=== PATIENT | male | born 2000 | race Two or more races ===

== ENCOUNTER 2022-09-23 03:50 | Emergency (ER) | payer OTHER ==
[~2022-09-23] VITALS: Ht 185.4 cm; Wt 95.4 kg
[2022-09-23] MEDS ORDERED: TETANUS-DIPTH-ACEL PERTUSSIS 0.5ML SYR Tdap IM ONE (04:15)
[2022-09-23] MEDS ORDERED: LIDOCAINE 1% HCL (LOCAL ANESTH.) INJ 20ML MDV ID ONE (04:15)
[2022-09-23] MEDS ORDERED: IBUPROFEN 600 MG TAB PO ONE (04:15)
[2022-09-23] MEDS ORDERED: CEPH500C PO (04:24)
[2022-09-23] MEDS ORDERED: IBUP1TAB4 PO (04:24)
[2022-09-23] MEDS ORDERED: MUPI2OIN2 EX (04:24)
[2022-09-23 04:26] VITALS: BP 148/80
[2022-09-23] MEDS ORDERED: cefTRIAXone W LIDOCAINE 1 GM IM IM ONE (04:45)
[2022-09-23] MEDS ORDERED: NEOMYCIN-BACITRACIN-POLYM UNITDOSE PKG TOP OINT TOP ONE (05:00)
[2022-09-23] MEDS ORDERED: cefTRIAXone SOD 1,000 MG VL IM ONE (05:00)
== END 2022-09-23 05:09 | disposition home or self-care (01) ==
LOC: ER 03:50
DX: S01.312A Laceration without foreign body of left ear, initial encounter (principal); Z79.899 Other long term (current) drug therapy; W01.0XXA Fall on same level from slipping, tripping and stumbling without subsequent striking against object, initial encounter; Y93.89 Activity, other specified; Y92.89 Other specified places as the place of occurrence of the external cause; Y99.8 Other external cause status
CPT/HCPCS: 12013; 90471; 90715; 96372; 99284; J0696; J2001

== ENCOUNTER 2024-12-08 16:30 | Emergency (ER) | payer OTHER ==
[~2024-12-08] VITALS: Ht 188 cm; Wt 88.4 kg
[~2024-12-08 16:30] MED LIST: CEPH500C PO; IBUP1TAB4 PO; MUPI2OIN2 EX
--- NOTE | 2024-12-08 17:09 | ED.PDOC ---
Eye-HPI HPI Comments Triage note 24-year-old male recently diagnosed with a peritonsillar abscess yesterday at [facility] presents with a chief complaint of worsening throat pain. Patient reports strep test was negative yesterday. The patient received two injections and was discharged with medications with minimal improvement. The patient has gone a preliminary evaluation purpose of accelerating the patient's care. The patient is aware that this is only a preliminary screening. The initial orders and they are associated results are to be reviewed documented in active upon by the other clinicians currently working in the ED. should the patient leave prior to this formal evaluation efforts will be made to follow up on critical results with the patient understands eye he is responsible for following up on his own results by contacting the emergency department. Chief Complaint: Sore Throat Time Seen by MD: 17:09 Reviewed Notes: Nurses Notes, Medications, Allergies Allergies: Coded Allergies: NO KNOWN ALLERGIES (Unverified , 09/23/22) Home Meds Active Scripts Mupirocin (Pseudomonas Fluores (Mupirocin) 2 % Oin, 1 APPLIC EX BID for 10 Days, #1 OIN Prov:ISAAC GIBSONALDA Q ENGINE ROOM OPERATOR 09/23/22 Ibuprofen Micronized (Ibuprofen) 400 Mg Tab, 1 TAB PO Q6HR, #20 TAB as neeeded for pain Prov:GIBSON,NORALDA Q ENGINE ROOM OPERATOR 09/23/22 Cephalexin Monohydrate (Cephalexin) 500 Mg Cap, 1 TAB PO QID for 10 Days, #40 CAP Prov:GIBSON,NORALDA Q ENGINE ROOM OPERATOR 09/23/22 Information Source: Patient Mode of Arrival: Ambulatory Past Medical History PAST MEDICAL HISTORY: Denies Surgical History: Denies all surgeries All Other Systems: Reviewed and Negative (PER HPI) Physical Exam General Appearance: No Apparent Distress, Normal HEENT: Normal ENT Inspection, Pharynx Normal, TMs Normal, Other (No drooling no tripod position. Right tonsil enlarged. No uvula deviation.) Neck: Full Range of Motion, Non-Tender, Normal, Normal Inspection Respiratory: Chest Non-Tender, Lungs Clear, No Accessory Muscle Use, No Respiratory Distress, Normal Breath Sounds Cardiovascular: No Edema, No JVD, No Murmur, No Gallop, Normal Peripheral Pulses, Regular Rate/Rhythm Breast Exam: Deferred Gastrointestinal: No Organomegaly, Non Tender, No Pulsatile Mass, Normal Bowel Sounds, Soft Genitalia: Deferred Pelvic: Deferred Rectal: Deferred Extremities: No calf tenderness, Normal capillary refill, Normal inspection, Normal range of motion, Non-tender, No pedal edema Musculoskeletal : Apperance: Normal Neurologic: Alert, postal superintendent II-XII nml as Tested, No Motor Deficits, Normal Affect, Normal Mood, No Sensory Deficits Cerebellar Function: Normal Reflexes: Normal Skin: Dry, Normal Color, Warm Lymphatic: No Adenopathy Was a procedure done? Was a procedure done?: No EENT DIFF Eye: Other X-Ray, Labs, Meds, VS Vital Signs Date Time Temp Pulse Resp B/P (MAP) Pulse Ox O2 Delivery O2 Flow Rate FiO2 12/08/24 16:33 98.7 110 18 143/87 95 98.7 Time of 1ST Reevaluation: 17:09 Reevaluation 1ST: Unchanged Patient Education/Counseling: Diagnosis, Treatment Family Education/Counseling: Diagnosis, Treatment SEPSIS Sepsis Screen Date sepsis recognized/suspect: Dec 08, 2024 Time Sepsis recognized/suspect: 1634 Recent Procedure: No On Antibiotic Therapy: No Respiratory Rate >20: No Heart Rate >90: Yes Temp<36 C (96.8 F) or >38.3 C: No SBP <90 or MAP <65 mmHG: No New Acute Mental Status Change: No Is the patient on CPAP, BIPAP,: No Physician Orders Complete Blood Count (12/08/24 17:00) Basic Metabolic Panel (12/08/24 17:00) Rapid Strep Screen - Throat (12/08/24 17:00) Heplock Iv (12/08/24 ) Neck With Contrast Soft (12/08/24 17:00) Vital Signs Date Time Temp Pulse Resp B/P (MAP) Pulse Ox O2 Delivery O2 Flow Rate FiO2 12/08/24 16:33 98.7 110 18 143/87 95 98.7 Departure 1 Departure Time of Disposition: 17:08 Impression: Primary Impression: Encounter for medical screening examination Disposition: HOME / SELF CARE / HOMELESS Condition: Fair Critical Care Note Critical Care Time?: No Stability Stability form required: No Heart Score Heart Score: Heart Score Response (Comments) Value History N/A 0 EKG N/A 0 Age N/A 0 Risk Factors N/A 0 Troponin N/A 0 Total 0 SHASHI GOSS ENGINE ROOM OPERATOR Dec 08, 2024 17:09
[2024-12-08 17:13] VITALS: BP 143/87; PULSE 110; RESP 18; TEMP 98.7; O2SAT 95
[2024-12-08 17:44] LABS: Rapid Strep A Screen-Throat Negative
[2024-12-08 18:03] LABS: Chloride 102 mmol/L (98-107); Potassium 3.7 mmol/L (3.5-5.1); Sodium 140 mmol/L (136-145)
[2024-12-08 18:04] LABS: Anion Gap 10 (5-15); Calcium 10.0 mg/dL (8.7-10.4); Carbon Dioxide 28 mmol/L (20-31); Hematocrit 45.6 % (41.0-53.0); Hemoglobin 15.7 g/dL (13.5-17.5); Mean Corpuscular Hemoglobin 31.4 pg (28.0-32.0); Mean Corpuscular Volume 91.0 fL (80.0-100.0)
[2024-12-08 18:09] LABS: BUN/Creatinine Ratio 12.6 (10.0-20.0); Blood Urea Nitrogen 13 mg/dL (9-23); Glucose 106 mg/dL (74-106)
[2024-12-08] MEDS: IOHEXOL 300 MG/ML 100ML BOTTLE IJ ONE (18:49)
--- NOTE | 2024-12-08 19:08 | DVH ---
COMPUTERIZED TOMOGRAPHY OF THE NECK WITH INTRAVENOUS CONTRAST CLINICAL HISTORY: Tonsillar abscess COMPARISON: None TECHNIQUE: The exam was performed on a multidetector scanner. Thin section spiral scans were acqui red from the external auditory canals to the thoracic inlet during the bolus intravenous administrati on of contrast material. 2-D coronal and sagittal reformatted images were provided. Radiation optimiz ation: All CT scans at this facility use at least one of these dose optimization techniques: Automate d exposure control mA and/or kV adjustment per patient size (includes targeted exams where dose is ma tched to clinical indication) or iterative reconstruction. CONTRAST ADMINISTERED: 100 mL omnipaque 300, intravenously. RADIATION DOSE: CTDI: 20.64 mGy DLP: 734.77 mGy-cm FINDINGS: There is a 2.1 x 1.8 x 1.6 cm thick-walled fluid collection within the deep tissues of the right palatine tonsil. The left palatine tonsil is unremarkable. There is mild narrowing of the oropharynx. The lingual tonsil in the adenoids are unremarkable. There are reactive lymph nodes in t he anterior cervical chain, the largest is a right level 2 lymph node measuring approximately 1.0 cm in short axis. The visualized salivary glands are morphologically normal and grossly symmetric. Ther e is no significant abnormality of the visualized thyroid gland. The visualized lung apices are withi n normal limits. The visualized posterior fossa is within normal limits. No acute osseous abnormality is identified. IMPRESSION: Right tonsillar/peritonsillar abscess measuring 2.1 cm in greatest transverse dimension.
[2024-12-08] MEDS: SODIUM CHLORIDE 0.9% 1,000 ML IV ONE (19:31)
[2024-12-08] MEDS: methylPREDNISolone SOD SUCC 125 MG/2 ML VL IV ONE (19:32)
[2024-12-08] MEDS: CLINDAMYCIN 900MG IV 50 ML IV ONE (20:00)
[2024-12-08 20:32] LABS: RBC Morphology Normal; Total Cells Counted 100.0 (100)
== END 2024-12-08 21:07 | disposition left against medical advice (07) ==
LOC: ER 16:30
DX: R07.0 Pain in throat (principal); Z79.899 Other long term (current) drug therapy
CPT/HCPCS: 36415; 70491; 80048; 83605; 85007; 85027; 87040; 87070; 87880; 96365; 96368; 96375; 99285; J0696; J2919; J3490; J7030; Q9967